=== PATIENT | female | born 1970 | race Caucasian/White ===

== ENCOUNTER → 2017-03-11 | Outpatient (CLI) | payer BC ==
[2017-03-11 08:45] LABS: Basophils # (auto) 0 uL; Basophils % (auto) 0.5 % (0.0-2.0); Eosinophils # (auto) 0.1 uL; Eosinophils % (auto) 1.4 % (0.0-7.0); Hematocrit 40.7 % (36.0-46.0); Hemoglobin 13.9 g/dL (12.2-16.2); Lymphocytes # (auto) 2.1 uL; Lymphocytes % (auto) 28.8 % (10.0-50.0); Mean Corpuscular Hemoglobin 31.1 pg (28.0-32.0); Mean Corpuscular Hgb Conc. 34.2 g/dL (32.0-36.0); Mean Corpuscular Volume 90.9 fL (80.0-100.0); Mean Platelet Volume 7.9 fL (7.4-10.4); Monocytes # (auto) 0.4 uL; Monocytes % (auto) 5.8 % (0.0-12.0); Neutrophils # (auto) 4.5 uL; Neutrophils % (auto) 63.5 % (37.0-80.0); Platelet Count (auto) 426 10^3/uL (140-450); Red Cell Distribution Width 13.3 % (11.6-16.0); White Blood Cell 7.1 10^3/uL (4.4-10.8)
[2017-03-11 08:48] LABS: Urine Bilirubin Negative (Negative); Urine Color Yellow (Yellow); Urine Glucose Normal (Normal); Urine Ketone Negative (Negative); Urine Mucus FEW (None Seen); Urine Nitrite Negative (Negative); Urine RBC 1 /hpf (0 - 4); Urine Squamous Epithelial Cell FEW /hpf (<5); Urine Urobilinogen Normal (Negative)
[2017-03-11 08:49] LABS: Urine Blood 2+ /uL (Negative)
[2017-03-11 09:29] LABS: Potassium 4.2 mmol/L (3.5-5.1)
[2017-03-11 09:34] LABS: Albumin 3.6 g/dL (3.4-5.0); BUN/Creatinine Ratio 14.7; Calcium 8.6 mg/dL (8.5-10.1)
[2017-03-11 09:40] LABS: Bilirubin, Total 0.3 mg/dL (0.2-1.0); Total Protein 7.4 g/dL (6.4-8.2)
== END | disposition home or self-care (01) ==
LOC: LAB 07:53
PROVIDERS: ATTEND Internal Medicine
DX: E11.9 Type 2 diabetes mellitus without complications (principal)
CPT/HCPCS: 36415; 80053; 80061; 81001; 82043; 82607; 83036; 84439; 84443; 85025; 85652; 86141

== ENCOUNTER → 2017-07-28 | Outpatient (CLI) | payer BC | END | disposition home or self-care (01) | LOC: LAB 13:49 | PROVIDERS: ATTEND Internal Medicine | DX: E11.9 Type 2 diabetes mellitus without complications (principal) | CPT/HCPCS: 36415; 83036 ==

== ENCOUNTER → 2018-03-02 | Outpatient (CLI) | payer BC ==
[2018-03-02 08:28] LABS: Basophils # (auto) 0.1 uL; Basophils % (auto) 1.1 % (0.0-2.0); Eosinophils # (auto) 0.1 uL; Eosinophils % (auto) 1.4 % (0.0-7.0); Hematocrit 42.4 % (36.0-46.0); Hemoglobin 14.4 g/dL (12.2-16.2); Lymphocytes # (auto) 1.7 uL; Lymphocytes % (auto) 27.1 % (10.0-50.0); Mean Corpuscular Hemoglobin 31.6 pg (28.0-32.0); Mean Corpuscular Hgb Conc. 33.9 g/dL (32.0-36.0); Mean Corpuscular Volume 93.3 fL (80.0-100.0); Monocytes # (auto) 0.4 uL; Monocytes % (auto) 6.5 % (0.0-12.0); Neutrophils % (auto) 63.9 % (37.0-80.0); Platelet Count (auto) 329 10^3/uL (140-450); Red Blood Cells 4.55 10^6/uL (4.0-5.20); Red Cell Distribution Width 13.4 % (11.8-14.3); White Blood Cell 6.2 10^3/uL (4.4-10.8)
[2018-03-02 08:33] LABS: Urine Bacteria FEW /hpf (None Seen); Urine Blood 2+ /uL (Negative); Urine Mucus FEW (None Seen); Urine Specific Gravity 1.026 (1.001-1.035); Urine WBC 1 /hpf (0 - 5)
[2018-03-02 09:02] LABS: Free T4 (Free Thyroxine) 1.01 ng/dL (0.89-1.76)
[2018-03-02 09:07] LABS: Albumin 3.8 g/dL (3.4-5.0); BUN/Creatinine Ratio 14.5; Bilirubin, Total 0.4 mg/dL (0.2-1.0); Calcium 8.8 mg/dL (8.5-10.1); Potassium 3.9 mmol/L (3.5-5.1); Total Protein 7.4 g/dL (6.4-8.2)
== END | disposition home or self-care (01) ==
LOC: LAB 07:52
PROVIDERS: ATTEND Internal Medicine
DX: E11.9 Type 2 diabetes mellitus without complications (principal); F32.9 Major depressive disorder, single episode, unspecified
CPT/HCPCS: 36415; 80053; 80061; 81001; 82043; 82607; 83036; 84439; 84443; 85025; 85652

== ENCOUNTER → 2018-07-13 | Outpatient (CLI) | payer BC | END | disposition home or self-care (01) | LOC: LAB 14:17 | PROVIDERS: ATTEND Internal Medicine | DX: E11.9 Type 2 diabetes mellitus without complications (principal); R19.7 Diarrhea, unspecified | CPT/HCPCS: 36415; 83036 ==

== ENCOUNTER → 2018-07-19 | Outpatient (CLI) | payer BC | END | disposition home or self-care (01) | LOC: LAB 14:59 | PROVIDERS: ATTEND Internal Medicine | DX: E11.9 Type 2 diabetes mellitus without complications (principal); R19.7 Diarrhea, unspecified | CPT/HCPCS: 82270 ==

== ENCOUNTER → 2018-11-16 | Day surgery (SDC) | payer BC ==
[2018-11-13 15:26] LABS: Basophils # (auto) 0.1 uL; Basophils % (auto) 0.7 % (0.0-2.0); Eosinophils # (auto) 0.1 uL; Eosinophils % (auto) 1.4 % (0.0-7.0); Hematocrit 42.6 % (36.0-46.0); Hemoglobin 14.5 g/dL (12.2-16.2); Lymphocytes # (auto) 2.2 uL; Lymphocytes % (auto) 31.1 % (10.0-50.0); Mean Corpuscular Hemoglobin 31.9 pg (28.0-32.0); Mean Corpuscular Volume 93.7 fL (80.0-100.0); Monocytes # (auto) 0.5 uL; Monocytes % (auto) 6.6 % (0.0-12.0); Neutrophils # (auto) 4.2 uL; Neutrophils % (auto) 60.2 % (37.0-80.0); Nucleated Red Blood Cells % 0.1 %; Platelet Count (auto) 324 10^3/uL (140-450); Red Blood Cells 4.55 10^6/uL (4.0-5.20); Red Cell Distribution Width 13.1 % (11.8-14.3)
[2018-11-13 15:30] LABS: INR 0.87 (0.9-1.15); Partial Thromboplastin Time 26.1 sec (23.78-33.04); Prothrombin Time 9.4 sec (9.27-12.13)
[2018-11-13 15:38] LABS: Albumin 4.1 g/dL (3.4-5.0); BUN/Creatinine Ratio 12.7; Bilirubin, Total 0.4 mg/dL (0.2-1.0); Total Protein 7.9 g/dL (6.4-8.2)
[2018-11-13 17:06] LABS: Urine Bacteria NONE SEEN /hpf (None Seen); Urine Blood 2+ /uL (Negative); Urine Specific Gravity 1.024 (1.001-1.035); Urine WBC 1 /hpf (0 - 5)
[~2018-11-16] VITALS: Ht 167.6 cm; Wt 93.0 kg
[~2018-11-16] MED LIST: ACCU-CHEK COMFORT CURVE STRIP VI ONE; ATOR20TA50 PO; COCAINE HCL 4% TOP SOL 4ML TOP ONE; DOXY25TA PO; FLUO40CA75 PO; GLYCOPYRROLATE 0.2 MG/ML 1ML VIAL ONE; HYDROmorphone HCL 2 MG/ML VL IV PRN; LIDOCAINE W/ EPINEPHRINE 1 % INJ 30ML ONE; LIDOCAINE W/ EPINEPHRINE 1% 20ML VIAL ONE; MEPERIDINE HCL (50 MG/ML) 1 ML VIAL ONE; METF-370 PO; METOCLOPRAMIDE HCL 5MG/ml INJ 2ml VIAL IV ONE; MIDAZOLAM HCL 1MG/1ML-2 ML VIAL ONE; NEOMYCIN-BACITRACIN-POLYM 15GM TOP OINT TOP ONE; NEOSTIGMINE 1 MG/ML INJ (10mg/10ML VIAL) ONE; ONDANSETRON HCL 4 MG/2 ML VIAL ONE; PROPOFOL 10 MG/ML 20 ML IV ONE; ROCURONIUM 10MG/ML 10ML VIAL IV ONE; SODIUM CHLORIDE LOCK 10 ML ONE; SUCCINYLCHOLINE CHLORIDE 20 MG/ML 10ML VIAL IV ONE; fentaNYL CITRATE 100 MCG/2 ML VL ONE
[2018-11-16 09:51] VITALS: BP 128/83
== END | disposition home or self-care (01) ==
LOC: SUR 06:00
PROVIDERS: ATTEND Otolaryngology
DX: J32.0 Chronic maxillary sinusitis (principal); J32.2 Chronic ethmoidal sinusitis; E66.9 Obesity, unspecified; E11.9 Type 2 diabetes mellitus without complications; F10.99 Alcohol use, unspecified with unspecified alcohol-induced disorder; J44.9 Chronic obstructive pulmonary disease, unspecified; Z68.33 Body mass index [BMI] 33.0-33.9, adult; Z90.49 Acquired absence of other specified parts of digestive tract; Z98.51 Tubal ligation status; Z79.84 Long term (current) use of oral hypoglycemic drugs; Z79.899 Other long term (current) drug therapy
CPT/HCPCS: 31255; 31267; 36415; 80053; 81001; 82962; 84702; 85025; 85610; 85730; J0330; J2175; J2250; J2405; J2704; J3010; J7030